=== PATIENT | male | born 1955 | race Caucasian/White ===

== ENCOUNTER 2021-11-26 23:54 | Emergency (ER) | payer MEDICARE ==
[~2021-11-26] VITALS: Ht 177.8 cm; Wt 73.0 kg
[2021-11-27 01:03] LABS: Source, Urine Clean Catch
[2021-11-27 01:06] LABS: Blood, Urine 2+ (Neg); Glucose Qualitative, Urine Neg (Neg); Ketones, Urine Neg (Neg); Leukocyte Esterase, Urine Neg (Neg); Nitrite, Urine Neg (Neg); Protein, Urine Neg (Neg); Specific Gravity, Urine 1.015 (1.003-1.022); Urobilinogen, Urine 3+ (Normal)
[2021-11-27 01:07] LABS: BASOPHILS ABSOLUTE AUTO 0.05 K/mm3 (0.00-0.23); BASOPHILS PERCENT AUTO 1 % (0-2); EOSINOPHILS ABSOLUTE AUTO 0.04 K/mm3 (0.00-0.68); EOSINOPHILS PERCENT AUTO 0 % (0-6); Hematocrit 37.4 % (37.0-53.0); IMMATURE GRAN ABSOLUTE AUTO 0.03 K/mm3 (0.00-0.10); IMMATURE GRAN PERCENT AUTO 0 % (0-1); LYMPHOCYTES ABSOLUTE AUTO 3.05 K/mm3 (0.84-5.20); LYMPHOCYTES PERCENT AUTO 32 % (21-46); MONOCYTES ABSOLUTE AUTO 1.53 K/mm3 (0.16-1.47); MONOCYTES PERCENT AUTO 16 % (4-13); Mean Corpuscular HGB 32.9 pg (26.0-34.0); Mean Corpuscular HGB Conc 34.8 g/dL (31.5-36.5); Mean Corpuscular Volume 95 fL (80-100); Mean Platelet Volume 9.5 fL (9.1-12.4); NEUTROPHILS ABSOLUTE AUTO 4.97 K/mm3 (1.96-9.15); NEUTROPHILS PERCENT AUTO 52 % (41-73); Platelet Count 238 K/mm3 (150-400); RDW Coefficient Variation 13.4 % (11.7-14.2); RDW Standard Deviation 47.1 fL (35.1-46.3); Red Blood Cell Count 3.95 M/mm3 (4.30-5.90); White Blood Cell Count 9.67 K/mm3 (4.00-11.30)
[2021-11-27 01:15] LABS: Amorphous Light (0-Heavy); Appearance, Urine Clear (Clear); Bacteria Not Seen /hpf; Bilirubin, Urine 1+ (Neg); Color, Urine Amber (P-Yellow); Mucus Light (0-Heavy); Squamous Epithelial Cells Rare /hpf (Few); White Blood Cells, Urine Not Seen /hpf (0-5)
[2021-11-27 01:25] LABS: Albumin, Blood 2.3 g/dL (3.4-5.0); Albumin/Globulin Ratio 0.5 (0.8-1.8); Bilirubin, Total 1.7 mg/dL (0.1-1.0); Bun/Creatinine Ratio 13.4 (12.0-20.0); Calcium, Blood 8.3 mg/dL (8.5-10.1); Creatinine, Blood 0.75 mg/dL (0.60-1.20); Globulin, Blood 4.5 g/dL (2.2-4.0); Total Protein, Blood 6.8 g/dL (6.4-8.2)
== END 2021-11-27 03:41 | disposition left against medical advice (07) ==
LOC: ER 23:54
PROVIDERS: Student in an Organized Health Care Education/Training Program
DX: R10.9 Unspecified abdominal pain (principal); Z53.21 Procedure and treatment not carried out due to patient leaving prior to being seen by health care provider
CPT/HCPCS: 36415; 80053; 81001; 83690; 85025

== ENCOUNTER 2022-02-03 13:05 | Emergency (ER) | payer MEDICARE ==
[~2022-02-03] VITALS: Ht 177.8 cm; Wt 70.8 kg
[2022-02-03 13:50] LABS: BASOPHILS ABSOLUTE AUTO 0.03 K/mm3 (0.00-0.23); BASOPHILS PERCENT AUTO 0 % (0-2); EOSINOPHILS PERCENT AUTO 1 % (0-6); Hematocrit 46.4 % (37.0-53.0); Hemoglobin 15.9 g/dL (13.5-17.5); IMMATURE GRAN ABSOLUTE AUTO 0.02 K/mm3 (0.00-0.10); IMMATURE GRAN PERCENT AUTO 0 % (0-1); LYMPHOCYTES ABSOLUTE AUTO 2.41 K/mm3 (0.84-5.20); LYMPHOCYTES PERCENT AUTO 24 % (21-46); MONOCYTES ABSOLUTE AUTO 1.32 K/mm3 (0.16-1.47); MONOCYTES PERCENT AUTO 13 % (4-13); Mean Corpuscular HGB 31.7 pg (26.0-34.0); Mean Corpuscular HGB Conc 34.3 g/dL (31.5-36.5); Mean Corpuscular Volume 93 fL (80-100); Mean Platelet Volume 9.9 fL (9.1-12.4); NEUTROPHILS ABSOLUTE AUTO 6.14 K/mm3 (1.96-9.15); NEUTROPHILS PERCENT AUTO 61 % (41-73); Platelet Count 254 K/mm3 (150-400); RDW Coefficient Variation 14.1 % (11.7-14.2); Red Blood Cell Count 5.01 M/mm3 (4.30-5.90); White Blood Cell Count 10.02 K/mm3 (4.00-11.30)
[2022-02-03 14:28] LABS: Albumin, Blood 2.7 g/dL (3.4-5.0); Albumin/Globulin Ratio 0.6 (0.8-1.8); Bilirubin, Total 2.1 mg/dL (0.1-1.0); Bun/Creatinine Ratio 34.7 (12.0-20.0); Calcium, Blood 9.3 mg/dL (8.5-10.1); Creatinine, Blood 0.75 mg/dL (0.60-1.20); Globulin, Blood 4.5 g/dL (2.2-4.0); Potassium, Blood 3.6 mmol/L (3.5-5.5); Total Protein, Blood 7.2 g/dL (6.4-8.2)
[2022-02-03 17:46] LABS: International Normalized Ratio 1.18; Prothrombin Time Results 12.3 Sec (9.7-11.5)
[2022-02-03] MEDS ORDERED: HYDROCODONE-AC1 EA18 PO (18:51)
[2022-02-03] MEDS ORDERED: ONDA4ODT MM (19:58)
[2022-02-03] MEDS ORDERED: PERCOCET 10-321 EA12 PO (19:58)
[2022-02-03] MEDS ORDERED: PHENERGAN25 MG PR (19:58)
== END 2022-02-03 20:15 | disposition home or self-care (01) ==
LOC: ER 13:05
PROVIDERS: Physician Assistant
DX: C22.0 Liver cell carcinoma (principal); R74.01 Elevation of levels of liver transaminase levels; I25.2 Old myocardial infarction; Z87.891 Personal history of nicotine dependence
CPT/HCPCS: 36415; 74177; 80053; 83690; 85025; 85610; A9270; J1170; J2405; J7030; Q9967

== ENCOUNTER 2022-07-22 10:54 | Inpatient (IN) | payer MEDICARE, OTHER ==
[~2022-07-22] VITALS: Ht 177.8 cm; Wt 72.9 kg
[~2022-07-22 10:54] MED LIST: HYDROCODONE-AC1 EA18 PO; ONDA4ODT MM; PERCOCET 10-321 EA12 PO; PHENERGAN25 MG PR
[2022-07-22 12:27] LABS: Albumin, Blood 2.4 g/dL (3.4-5.0); Albumin/Globulin Ratio 0.5 (0.8-1.8); Bilirubin, Total 1.2 mg/dL (0.1-1.0); Bun/Creatinine Ratio 12.3 (12.0-20.0); Calcium, Blood 8.5 mg/dL (8.5-10.1); Creatinine, Blood 0.82 mg/dL (0.60-1.20); Globulin, Blood 4.6 g/dL (2.2-4.0); Potassium, Blood 3.6 mmol/L (3.5-5.5)
[2022-07-22 12:29] LABS: BASOPHILS ABSOLUTE AUTO 0.08 K/mm3 (0.00-0.23); BASOPHILS PERCENT AUTO 1 % (0-2); EOSINOPHILS ABSOLUTE AUTO 0.22 K/mm3 (0.00-0.68); EOSINOPHILS PERCENT AUTO 3 % (0-6); Hematocrit 46.6 % (37.0-53.0); Hemoglobin 15.9 g/dL (13.5-17.5); IMMATURE GRAN ABSOLUTE AUTO 0.02 K/mm3 (0.00-0.10); IMMATURE GRAN PERCENT AUTO 0 % (0-1); LYMPHOCYTES ABSOLUTE AUTO 1.79 K/mm3 (0.84-5.20); LYMPHOCYTES PERCENT AUTO 28 % (21-46); MONOCYTES ABSOLUTE AUTO 0.76 K/mm3 (0.16-1.47); MONOCYTES PERCENT AUTO 12 % (4-13); Mean Corpuscular HGB 32.5 pg (26.0-34.0); Mean Corpuscular HGB Conc 34.1 g/dL (31.5-36.5); Mean Corpuscular Volume 95 fL (80-100); Mean Platelet Volume 9.9 fL (9.1-12.4); NEUTROPHILS ABSOLUTE AUTO 3.53 K/mm3 (1.96-9.15); NEUTROPHILS PERCENT AUTO 55 % (41-73); Platelet Count 289 K/mm3 (150-400); RDW Coefficient Variation 14.3 % (11.7-14.2); RDW Standard Deviation 49.6 fL (35.1-46.3); Red Blood Cell Count 4.89 M/mm3 (4.30-5.90)
[2022-07-22] MEDS ORDERED: OXYC10TA19 PO (19:27)
[2022-07-22] MEDS ORDERED: FENT200LOZ MM (19:28)
[2022-07-22] MEDS ORDERED: FENT200LOZ TD (19:30)
--- NOTE | 2022-07-23 05:12 | NUR ---
SHIFT SUMMARY PT IS A&OX4, IND IN THE ROOM, HAS HAD UNCHANGED Q4 NUERO ASSESSMENTS, AND HAS DENIED ANY ANGINA, SOB, DIZZYNESS, NUMBNESS/TINGLING, AND PAIN. THE PT HAS STAGE FOUR LIVER CANCER AND USES A FENTYNAL PATCH TO MANAGE HIS PAIN. WHEN HE WAS SLEEPING HE BEGAN TO DESATURATE TO 88% AND WAS PLACED ON 1L NC WHEN SLEEPING. BP WAS HYPERTENSIVE AT THE START OF THE SHIFT AND HAS BEGAN TO STABLIZE T/O THE SHIFT. HE HAS RIGHT SIDED WEAKNESS BUT STILL IS ABLE TO USE HIS RIGHT SIDE. HIS BED IS IN LOW, CALL LIGHT IS IN REACH, AND I WILL CONTINUE TO MONITOR UNTIL SHIFT REPORT IS GIVEN TO THE ONCOMING SHIFT RN. SEE NOTES FOR ANY UPDATES
--- NOTE | 2022-07-23 17:54 | NUR ---
ASSUMED CARE OF PT AT 0700 THIS AM. NEUROLOGICAL ASSESSMENT REMAINS UNCHANGED T/O THE SHIFT. AT 1416 PT NOTED TO HAVE 18 BEAT RUN OF VTACH ON TELEMETRY, PT IS ASYMPTOMATIC AND DR TAM IS NOTIFIED. NO NEW ORDERS. PT'S DTR CONCERNED ABOUT PT RECEIVING LIPITOR WITH HIS LIVER CA, STATES THAT LIPITOR SHOULDN'T BE GIVEN TO PT'S WITH LIVER PROBLEMS. DR TAM NOTIFIED OF CONCERNS, NO NEW ORDERS AT THIS TIME. SEE DOCUMENTED VS AND ASSESSMENT. PT ABLE TO AMBULATE INDEPENDENTLY IN ROOM, ABLE TO USE CALL LIGHT FOR NEEDS. CALL LIGHT IN REACH, WILL CONTINUE TO MONITOR AND GIVE REPORT TO NOC SHIFT RN.
[2022-07-24 04:03] LABS: BASOPHILS ABSOLUTE AUTO 0.07 K/mm3 (0.00-0.23); BASOPHILS PERCENT AUTO 1 % (0-2); EOSINOPHILS ABSOLUTE AUTO 0.45 K/mm3 (0.00-0.68); EOSINOPHILS PERCENT AUTO 8 % (0-6); Hematocrit 44.4 % (37.0-53.0); Hemoglobin 15.4 g/dL (13.5-17.5); IMMATURE GRAN ABSOLUTE AUTO 0.03 K/mm3 (0.00-0.10); IMMATURE GRAN PERCENT AUTO 1 % (0-1); LYMPHOCYTES ABSOLUTE AUTO 1.98 K/mm3 (0.84-5.20); LYMPHOCYTES PERCENT AUTO 33 % (21-46); MONOCYTES ABSOLUTE AUTO 0.66 K/mm3 (0.16-1.47); MONOCYTES PERCENT AUTO 11 % (4-13); Mean Corpuscular HGB 32.6 pg (26.0-34.0); Mean Corpuscular HGB Conc 34.7 g/dL (31.5-36.5); Mean Corpuscular Volume 94 fL (80-100); Mean Platelet Volume 9.1 fL (9.1-12.4); NEUTROPHILS ABSOLUTE AUTO 2.82 K/mm3 (1.96-9.15); NEUTROPHILS PERCENT AUTO 47 % (41-73); Platelet Count 258 K/mm3 (150-400); RDW Standard Deviation 48.9 fL (35.1-46.3); Red Blood Cell Count 4.72 M/mm3 (4.30-5.90); White Blood Cell Count 6.01 K/mm3 (4.00-11.30)
[2022-07-24 04:52] LABS: Albumin, Blood 2.1 g/dL (3.4-5.0); Albumin/Globulin Ratio 0.5 (0.8-1.8); Bun/Creatinine Ratio 22.1 (12.0-20.0); Creatinine, Blood 0.68 mg/dL (0.60-1.20); Globulin, Blood 4.1 g/dL (2.2-4.0); Total Protein, Blood 6.2 g/dL (6.4-8.2)
--- NOTE | 2022-07-24 05:29 | NUR ---
SHIFT SUMMARY PT IS A&OX4, IND IN THE ROOM, HAS HAD 1L NC ON WHEN SLEEPING TO MAINTAIN SP02>90%, AND HE HAS HAD NO COMPLAINTS. PT WAS HYPERTENSIVE AND DR. PATEL WAS CALLED. SEE PREVIOUS NOTE FOR MORE INFORMATION. AFTER 25MG LOPRESSOR WAS GIVEN PT'S HR BEGAN TO SUSTAIN IN THE 40'S-50'S EVEN WHEN AWAKE. PT WAS NOT HAVING ANY SX CHANGES. HIS BED ALARM IS ON, BED IS IN LOW, AND CALL LIGHT IS IN REACH. WILL CONTINUE TO MONITOR UNTIL SHIFT REPORT IS GIVEN TO THE ONCOMING SHIFT RN. SEE NOTES FOR ANY UPDATES
[2022-07-24] MEDS ORDERED: LISI5 PO (14:48)
[2022-07-24] MEDS ORDERED: PRAV20 PO (14:48)
[2022-07-24] MEDS ORDERED: FENTANYL1 EA10 TOP (14:49)
[2022-07-24] MEDS ORDERED: ASPI81CH PO (14:50)
--- NOTE | 2022-07-24 15:49 | NUR ---
DISCHARGE SUMMARY PATIENT ALERT AND ORIENTED THROUGHOUT SHIFT. R SIDE WEAKNESS BUT ABLE TO AMBULATE INDEPENDENTLY IN ROOM. TOLERATING CARDIAC DIET AND LIQUIDS. VOIDING WELL. BRADYCARIC ON TELE DURING AM, HR TRENDED UP TO 60S DURING AFTERNOON. OTHER VSS, RA. MEDICATED FOR RIGHT ABD PAIN PER EMAR. DISCHARGE ORDERS GIVEN BY DR ADAME. DISCHARGE EDUCATION GIVEN ON NEW RXS, ACTIVITY, AND FOLLOW UP APPTS WITH PCP. IV'S DC'D WNL. PATIENT LEFT UNIT AT 1500 VIA WHEELCHAIR FOR HOME WITH DAUGHTER.
== END 2022-07-24 15:25 | disposition home or self-care (01) | DRG 65 ==
LOC: ER 10:54 → PCU 17:32
PROVIDERS: Emergency Medicine; Family Medicine; ADMIT Internal Medicine
DX: I63.89 Other cerebral infarction (principal); C22.0 Liver cell carcinoma; G81.91 Hemiplegia, unspecified affecting right dominant side; F11.10 Opioid abuse, uncomplicated; I10 Essential (primary) hypertension; N28.89 Other specified disorders of kidney and ureter; B19.20 Unspecified viral hepatitis C without hepatic coma; R29.6 Repeated falls; G89.29 Other chronic pain; I25.10 Atherosclerotic heart disease of native coronary artery without angina pectoris; Z96.651 Presence of right artificial knee joint; Z87.891 Personal history of nicotine dependence; Z79.891 Long term (current) use of opiate analgesic; Z79.899 Other long term (current) drug therapy; I25.2 Old myocardial infarction
CPT/HCPCS: 36415; 70450; 70496; 70498; 70551; 80053; 82947; 85025; 93005; 93010; 93306; 97110; 97112; 97116; 97161; 97166; 97530; 99285-25; A9270; Q9967

== ENCOUNTER → 2022-10-01 | Outpatient (CLI) | payer MEDICARE, OTHER ==
[~2022-10-01] MED LIST changes: +ASPI81CH PO; +FENT200LOZ MM; +FENT200LOZ TD; +FENTANYL1 EA10 TOP; +LISI5 PO; +OXYC10TA19 PO; +PRAV20 PO
[2022-10-01 13:06] LABS: BASOPHILS ABSOLUTE AUTO 0.09 K/mm3 (0.00-0.23); BASOPHILS PERCENT AUTO 1 % (0-2); EOSINOPHILS PERCENT AUTO 7 % (0-6); Hematocrit 43.7 % (37.0-53.0); Hemoglobin 15.7 g/dL (13.5-17.5); IMMATURE GRAN ABSOLUTE AUTO 0.02 K/mm3 (0.00-0.10); IMMATURE GRAN PERCENT AUTO 0 % (0-1); LYMPHOCYTES ABSOLUTE AUTO 2.29 K/mm3 (0.84-5.20); LYMPHOCYTES PERCENT AUTO 27 % (21-46); MONOCYTES ABSOLUTE AUTO 1.01 K/mm3 (0.16-1.47); MONOCYTES PERCENT AUTO 12 % (4-13); Mean Corpuscular HGB 33.5 pg (26.0-34.0); Mean Corpuscular HGB Conc 35.9 g/dL (31.5-36.5); Mean Corpuscular Volume 93 fL (80-100); Mean Platelet Volume 9.1 fL (9.1-12.4); NEUTROPHILS ABSOLUTE AUTO 4.34 K/mm3 (1.96-9.15); NEUTROPHILS PERCENT AUTO 52 % (41-73); Platelet Count 244 K/mm3 (150-400); RDW Coefficient Variation 14.6 % (11.7-14.2); RDW Standard Deviation 48.8 fL (35.1-46.3); Red Blood Cell Count 4.69 M/mm3 (4.30-5.90); White Blood Cell Count 8.35 K/mm3 (4.00-11.30)
[2022-10-01 13:56] LABS: Magnesium, Blood 1.9 mg/dL (1.6-2.4)
[2022-10-01 14:03] LABS: Albumin, Blood 2.6 g/dL (3.4-5.0); Albumin/Globulin Ratio 0.6 (0.8-1.8); Bilirubin, Total 1.6 mg/dL (0.1-1.0); Bun/Creatinine Ratio 18.8 (12.0-20.0); Calcium, Blood 8.6 mg/dL (8.5-10.1); Creatinine, Blood 0.64 mg/dL (0.60-1.20); Globulin, Blood 4.3 g/dL (2.2-4.0); Potassium, Blood 3.8 mmol/L (3.5-5.5); Total Protein, Blood 6.9 g/dL (6.4-8.2)
== END | disposition home or self-care (01) ==
LOC: LAB SHORT 12:55 → LAB 12:55
PROVIDERS: Emergency Medicine
DX: R42 Dizziness and giddiness (principal)
CPT/HCPCS: 80053; 83690; 83735; 85025

== ENCOUNTER 2022-11-01 23:03 | Inpatient (IN) | payer OTHER, MEDICARE ==
[~2022-11-01] VITALS: Ht 177.8 cm; Wt 64.4 kg
[2022-11-01 23:44] LABS: BASOPHILS ABSOLUTE AUTO 0.09 K/mm3 (0.00-0.23); BASOPHILS PERCENT AUTO 1 % (0-2); EOSINOPHILS ABSOLUTE AUTO 0.68 K/mm3 (0.00-0.68); EOSINOPHILS PERCENT AUTO 8 % (0-6); Hematocrit 39.6 % (37.0-53.0); Hemoglobin 13.8 g/dL (13.5-17.5); IMMATURE GRAN ABSOLUTE AUTO 0.03 K/mm3 (0.00-0.10); IMMATURE GRAN PERCENT AUTO 0 % (0-1); LYMPHOCYTES PERCENT AUTO 31 % (21-46); MONOCYTES ABSOLUTE AUTO 1.03 K/mm3 (0.16-1.47); MONOCYTES PERCENT AUTO 13 % (4-13); Mean Corpuscular HGB 33.2 pg (26.0-34.0); Mean Corpuscular HGB Conc 34.8 g/dL (31.5-36.5); Mean Corpuscular Volume 95 fL (80-100); Mean Platelet Volume 9.8 fL (9.1-12.4); NEUTROPHILS ABSOLUTE AUTO 3.84 K/mm3 (1.96-9.15); NEUTROPHILS PERCENT AUTO 46 % (41-73); Platelet Count 214 K/mm3 (150-400); RDW Coefficient Variation 14.2 % (11.7-14.2); RDW Standard Deviation 49.5 fL (35.1-46.3); Red Blood Cell Count 4.16 M/mm3 (4.30-5.90); White Blood Cell Count 8.27 K/mm3 (4.00-11.30)
[2022-11-02] LABS: U Amphetamine Screen Not Detected; U Barbituate Screen Not Detected; U Benzodiazapine Screen Not Detected; U Buprenorphine Screen Not Detected; U Cannabinoids Screen Not Detected; U Cocaine Screen Not Detected; U Methadone Screen Not Detected; U Methamphetamine Screen Not Detected; U Opiates Screen Not Detected; U Oxycodone Screen Not Detected; U Phencyclidine Screen Not Detected; U Propoxyphene Screen Not Detected
[2022-11-02 00:04] LABS: Albumin, Blood 2.3 g/dL (3.4-5.0); Albumin/Globulin Ratio 0.6 (0.8-1.8); Bilirubin, Total 1.6 mg/dL (0.1-1.0); Bun/Creatinine Ratio 16.3 (12.0-20.0); Calcium, Blood 8.3 mg/dL (8.5-10.1); Creatinine, Blood 0.67 mg/dL (0.60-1.20); Globulin, Blood 3.8 g/dL (2.2-4.0); Potassium, Blood 3.8 mmol/L (3.5-5.5); Thyroid Stimulating Hormone 2.01 uIU/mL (0.360-4.800); Total Protein, Blood 6.1 g/dL (6.4-8.2)
[2022-11-02 03:38] VITALS: BP 157/95
--- NOTE | 2022-11-02 04:05 | NUR ---
ADMIT: PT ARRIVED AT 0330 TO MED FLOOR 338. PT ABLE TO TRANSFER WITH MIN ASSIST FROM [facility] TO BED. PT BROUGHT CANE WHICH HE USES AT HOME. IV SITE BLOODY AND WOULD NOT FLUSH. WILL ATTEMPT NEW IV THIS SHIFT. UA STRAIGHT CATH ORDERED WHICH PT IS REFUSING AT THIS TIME. PT CAME IN WITH 2 FENTANYL PATCH ON LEFT UPPER ARM. ONE 25MCG AND THE OTHER 12.5MCG. PT HOME MED LIST SHOWS 25 MCG PATCH Q3 DAYS. PT ALERT AND ABLE TO ANSWER ALL ORIENTATION QUESTIONS. BRUISING/SWELLING TO L.KNEE. PT STATES FROM PREVIOUS FALL. CALL LIGHT IN REACH. BED IN LOWEST POSITION. BED ALARM ON. WILL CONTINUE TO MONITOR.
[2022-11-02 05:09] LABS: BASOPHILS ABSOLUTE AUTO 0.07 K/mm3 (0.00-0.23); BASOPHILS PERCENT AUTO 1 % (0-2); EOSINOPHILS ABSOLUTE AUTO 0.87 K/mm3 (0.00-0.68); EOSINOPHILS PERCENT AUTO 11 % (0-6); Hematocrit 41.3 % (37.0-53.0); Hemoglobin 14.4 g/dL (13.5-17.5); IMMATURE GRAN ABSOLUTE AUTO 0.02 K/mm3 (0.00-0.10); IMMATURE GRAN PERCENT AUTO 0 % (0-1); LYMPHOCYTES ABSOLUTE AUTO 2.45 K/mm3 (0.84-5.20); LYMPHOCYTES PERCENT AUTO 32 % (21-46); MONOCYTES ABSOLUTE AUTO 1.02 K/mm3 (0.16-1.47); MONOCYTES PERCENT AUTO 13 % (4-13); Mean Corpuscular HGB 33.1 pg (26.0-34.0); Mean Corpuscular HGB Conc 34.9 g/dL (31.5-36.5); Mean Corpuscular Volume 95 fL (80-100); Mean Platelet Volume 9.2 fL (9.1-12.4); NEUTROPHILS ABSOLUTE AUTO 3.19 K/mm3 (1.96-9.15); NEUTROPHILS PERCENT AUTO 42 % (41-73); Platelet Count 198 K/mm3 (150-400); RDW Coefficient Variation 14.1 % (11.7-14.2); RDW Standard Deviation 49.3 fL (35.1-46.3); Red Blood Cell Count 4.35 M/mm3 (4.30-5.90); White Blood Cell Count 7.62 K/mm3 (4.00-11.30)
[2022-11-02 05:29] LABS: Albumin, Blood 2.4 g/dL (3.4-5.0); Albumin/Globulin Ratio 0.6 (0.8-1.8); Bun/Creatinine Ratio 16.2 (12.0-20.0); Calcium, Blood 8.5 mg/dL (8.5-10.1); Creatinine, Blood 0.68 mg/dL (0.60-1.20); Globulin, Blood 3.8 g/dL (2.2-4.0); Potassium, Blood 3.7 mmol/L (3.5-5.5); Total Protein, Blood 6.2 g/dL (6.4-8.2)
[2022-11-02 05:40] LABS: Source, Urine Straight Cath
[2022-11-02 05:47] LABS: Bilirubin, Urine Neg (Neg); Blood, Urine 5+ (Neg); Glucose Qualitative, Urine Neg (Neg); Ketones, Urine Neg (Neg); Leukocyte Esterase, Urine Neg (Neg); Nitrite, Urine Neg (Neg); Protein, Urine Neg (Neg); Urobilinogen, Urine 1+ (Normal)
[2022-11-02 05:58] LABS: Appearance, Urine Hazy (Clear); Color, Urine Yellow (P-Yellow)
[2022-11-02 06:00] LABS: Bacteria Not Seen /hpf; Red Blood Cells, Urine 50-100 /hpf (0-2); Squamous Epithelial Cells Not Seen /hpf (Few); White Blood Cells, Urine Not Seen /hpf (0-5)
[2022-11-02 07:37] VITALS: BP 141/90
--- NOTE | 2022-11-02 11:59 | NUR ---
FENTANYL PATCH ON LEFT UPPER ARM 25MCG FROM HOME APPLICATION REMOVED BY PREPARATOR AT DIRECTION OF DR HERNANDEZ. PATIENT AGREABLE.
[2022-11-02 13:24] VITALS: BP 119/75
--- NOTE | 2022-11-02 17:21 | NUR ---
SHIFT SUMMARY PATIENT AOX2-3 TODAY, UNABLE TO STATE EXACT DATE BUT MONTH CORRECT. UNABLE TO STATE REASON FOR BEING IN HOSPITAL. 2 DOSES LACTULOSE GIVEN TODAY. PATIENT HAS HAD 4 BM THIS AFTERNOON, LAST 3 HAVE BEEN WATERY. PATIENT DENIES ANY PAIN, DIZZINESS OR OTHER ISSUES. WILL CONTINUE TO MONITOR.
[2022-11-02 20:07] VITALS: BP 116/72
[2022-11-03 04:15] VITALS: BP 125/82
--- NOTE | 2022-11-03 04:38 | NUR ---
SHIFT SUMMARY: PT A&O X2 THIS SHIFT. PT ABLE TO STATE NAME AND WHERE HE IS BUT IS UNABLE TO TELL ME WHY HE IS HERE AND WHAT DAY OF WEEK IT IS. PT PLEASANT AND COOPERATIVE WITH CARE. BED ALARM ON FOR IMPULSIVITY AND QUICKLY GETTING OUT OF BED W/O ASSISTANCE. PT SB ASSIST TO BATHROOM BUT IS QUICK ON FEET. LACTULOSE GIVEN PER EMAR. PT HAD ONE MEDIUM SIZED BM THIS SHIFT. AMMONIA DOWN TO 102 FROM 119. PT HAS HEPATOCELLULAR CARCINOMA. OUTPT CARE PROVIDED BY DR. MCFADDEN. CALL LIGHT IN REACH. BED IN LOWEST POSITION. BED ALARM ON. WILL CONTINUE TO MONITOR.
[2022-11-03 07:37] VITALS: BP 139/88
[2022-11-03 15:07] VITALS: BP 130/83
--- NOTE | 2022-11-03 18:27 | NUR ---
SHIFT SUMMARY PATIENT MORE ORIENTED TODAY, ABLE TO STATE MONTH, PRESIDENT, LOCATION, PERSON AND WHY HE CAME IN. BED ALARM CONTINUES TO BE ON DUE TO LIMITATION AWARENESS AND RESUMPTION OF FENTANYL PATCHES TODAY IN LIGHT OF AMS YESTERDAY. PATIENT COOPERATIVE WITH CARE. BED IN LOW POSITION AND CALL LIGHT IN REACH.
[2022-11-03 19:41] VITALS: BP 144/84
[2022-11-04 02:33] VITALS: BP 144/97
--- NOTE | 2022-11-04 04:25 | NUR ---
SHIFT SUMMARY PT ALERT AND ORIENTED X 4. PT HAD AN INSTANCE OF CHEST/RIB PAIN LAST EVENING. PT WEARING FENTANYL PATCH, HOWEVER PT REQUIRED 20 MG OF ROXYCODONE SUPPLEMENTAL PAIN MEDICATION AT THAT TIME. PT HAS NOT HAD ANY COMPLAINTS OF PAIN SINCE THAT TIME.
[2022-11-04 05:27] LABS: BASOPHILS ABSOLUTE AUTO 0.09 K/mm3 (0.00-0.23); BASOPHILS PERCENT AUTO 1 % (0-2); EOSINOPHILS ABSOLUTE AUTO 0.92 K/mm3 (0.00-0.68); EOSINOPHILS PERCENT AUTO 11 % (0-6); Hematocrit 40.6 % (37.0-53.0); Hemoglobin 14.4 g/dL (13.5-17.5); IMMATURE GRAN ABSOLUTE AUTO 0.01 K/mm3 (0.00-0.10); IMMATURE GRAN PERCENT AUTO 0 % (0-1); LYMPHOCYTES ABSOLUTE AUTO 2.53 K/mm3 (0.84-5.20); LYMPHOCYTES PERCENT AUTO 30 % (21-46); MONOCYTES ABSOLUTE AUTO 0.99 K/mm3 (0.16-1.47); MONOCYTES PERCENT AUTO 12 % (4-13); Mean Corpuscular HGB 33.4 pg (26.0-34.0); Mean Corpuscular HGB Conc 35.5 g/dL (31.5-36.5); Mean Corpuscular Volume 94 fL (80-100); Mean Platelet Volume 9.3 fL (9.1-12.4); NEUTROPHILS ABSOLUTE AUTO 3.81 K/mm3 (1.96-9.15); NEUTROPHILS PERCENT AUTO 46 % (41-73); Platelet Count 210 K/mm3 (150-400); RDW Coefficient Variation 14.3 % (11.7-14.2); RDW Standard Deviation 49.8 fL (35.1-46.3); Red Blood Cell Count 4.31 M/mm3 (4.30-5.90); White Blood Cell Count 8.35 K/mm3 (4.00-11.30)
[2022-11-04 05:50] LABS: Albumin, Blood 2.2 g/dL (3.4-5.0); Albumin/Globulin Ratio 0.6 (0.8-1.8); Bilirubin, Direct 0.7 mg/dL (0.0-0.3); Bilirubin, Indirect 1.2 mg/dL (0.1-0.7); Bilirubin, Total 1.9 mg/dL (0.1-1.0); Bun/Creatinine Ratio 14.8 (12.0-20.0); Calcium, Blood 7.9 mg/dL (8.5-10.1); Creatinine, Blood 0.74 mg/dL (0.60-1.20); Globulin, Blood 3.7 g/dL (2.2-4.0); Potassium, Blood 3.9 mmol/L (3.5-5.5); Total Protein, Blood 5.9 g/dL (6.4-8.2)
[2022-11-04 07:56] VITALS: BP 129/82
[2022-11-04] MEDS ORDERED: Prinivil10 MG PO (13:31)
[2022-11-04] MEDS ORDERED: Enulose10 GM/15 M PO (13:32)
--- NOTE | 2022-11-04 15:34 | NUR ---
DISCHARGE SUMMARY PATIENT ORIENTED X4 TODAY, DAUGHTER PRESENT THROUGHOUT MORNING. PATIENT CONTINUES WILL SEVERAL BOWEL MOVEMENTS TODAY. DISCHARGE AND EDUCATION PACKET PROVIDED TO PATIENT AND DAUGHTER. ALL QUESTIONS ANSWERED. SIGNATURES OBTAINED. PATIENT LEFT FLOOR AT 1527 IN WHEELCHAIR WITH DALILA TAVERAS. DAUGHTER PRESENT AND PROVIDING TRANSPORTATION HOME.
== END 2022-11-04 15:23 | disposition home or self-care (01) | DRG 442 ==
LOC: ER 23:03 → MEDS 23:04
PROVIDERS: Emergency Medicine; Family Medicine; Internal Medicine; ADMIT Internal Medicine
DX: K76.82 Hepatic encephalopathy (principal); C22.0 Liver cell carcinoma; R64 Cachexia; I69.351 Hemiplegia and hemiparesis following cerebral infarction affecting right dominant side; S80.02XA Contusion of left knee, initial encounter; Z51.5 Encounter for palliative care; S01.311A Laceration without foreign body of right ear, initial encounter; I10 Essential (primary) hypertension; R94.5 Abnormal results of liver function studies; W01.0XXA Fall on same level from slipping, tripping and stumbling without subsequent striking against object, initial encounter; Z87.891 Personal history of nicotine dependence; Z79.82 Long term (current) use of aspirin; Z79.811 Long term (current) use of aromatase inhibitors; Z79.891 Long term (current) use of opiate analgesic; Z79.899 Other long term (current) drug therapy; Z71.6 Tobacco abuse counseling; Z86.19 Personal history of other infectious and parasitic diseases; Z85.528 Personal history of other malignant neoplasm of kidney; Z68.21 Body mass index [BMI] 21.0-21.9, adult; I25.2 Old myocardial infarction; Z98.890 Other specified postprocedural states
CPT/HCPCS: 36415; 70450; 73560-LT; 80053; 81001; 82140; 82248; 84443; 85025; 93005; 93010; 97110; 97116; 97161; 97166; 97535; 99285-25; A9270; G0378; J1650

== ENCOUNTER 2023-01-23 12:43 | Emergency (ER) | payer MEDICARE, OTHER ==
[~2023-01-23] VITALS: Ht 177.8 cm; Wt 60.3 kg
[~2023-01-23 12:43] MED LIST changes: +Enulose10 GM/15 M PO; +Prinivil10 MG PO
[2023-01-23 13:18] LABS: BASOPHILS ABSOLUTE AUTO 0.05 K/mm3 (0.00-0.23); BASOPHILS PERCENT AUTO 1 % (0-2); EOSINOPHILS ABSOLUTE AUTO 0.14 K/mm3 (0.00-0.68); EOSINOPHILS PERCENT AUTO 1 % (0-6); Hematocrit 38.8 % (37.0-53.0); Hemoglobin 13.3 g/dL (13.5-17.5); IMMATURE GRAN ABSOLUTE AUTO 0.04 K/mm3 (0.00-0.10); IMMATURE GRAN PERCENT AUTO 0 % (0-1); LYMPHOCYTES ABSOLUTE AUTO 1.56 K/mm3 (0.84-5.20); LYMPHOCYTES PERCENT AUTO 16 % (21-46); MONOCYTES ABSOLUTE AUTO 1.55 K/mm3 (0.16-1.47); MONOCYTES PERCENT AUTO 16 % (4-13); Mean Corpuscular HGB 33.3 pg (26.0-34.0); Mean Corpuscular HGB Conc 34.3 g/dL (31.5-36.5); Mean Corpuscular Volume 97 fL (80-100); Mean Platelet Volume 8.7 fL (9.1-12.4); NEUTROPHILS ABSOLUTE AUTO 6.46 K/mm3 (1.96-9.15); NEUTROPHILS PERCENT AUTO 66 % (41-73); Platelet Count 323 K/mm3 (150-400); RDW Coefficient Variation 13.8 % (11.7-14.2); RDW Standard Deviation 48.9 fL (35.1-46.3); Red Blood Cell Count 3.99 M/mm3 (4.30-5.90)
[2023-01-23 13:37] LABS: Albumin, Blood 1.7 g/dL (3.4-5.0); Albumin/Globulin Ratio 0.4 (0.8-1.8); Bilirubin, Total 1.7 mg/dL (0.1-1.0); Bun/Creatinine Ratio 17.7 (12.0-20.0); Calcium, Blood 7.7 mg/dL (8.5-10.1); Creatinine, Blood 0.68 mg/dL (0.60-1.20); Globulin, Blood 3.9 g/dL (2.2-4.0); Potassium, Blood 4.1 mmol/L (3.5-5.5); Total Protein, Blood 5.6 g/dL (6.4-8.2)
[2023-01-23 14:45] VITALS: BP 101/89
[2023-01-23 15:39] LABS: Source, Urine Clean Catch
[2023-01-23 15:41] LABS: Blood, Urine Neg (Neg); Color, Urine Amber (P-Yellow); Glucose Qualitative, Urine Neg (Neg); Ketones, Urine Neg (Neg); Leukocyte Esterase, Urine 1+ (Neg); Nitrite, Urine Neg (Neg); Protein, Urine 2+ (Neg); Urobilinogen, Urine 4+ (Normal)
[2023-01-23 15:47] LABS: Bilirubin, Urine 2+ (Neg)
[2023-01-23 15:49] LABS: Appearance, Urine Hazy (Clear); Bacteria Few /hpf; Mucus Mod (0-Heavy); Red Blood Cells, Urine 0-2 /hpf (0-2); Squamous Epithelial Cells Not Seen /hpf (Few)
[2023-01-23] MEDS ORDERED: OXAYDO5 M7 PO (16:07)
== END 2023-01-23 16:41 | disposition home or self-care (01) ==
LOC: ER 12:43
PROVIDERS: Student in an Organized Health Care Education/Training Program
DX: C22.0 Liver cell carcinoma (principal); R10.9 Unspecified abdominal pain; Z79.899 Other long term (current) drug therapy; Z79.891 Long term (current) use of opiate analgesic; Z79.82 Long term (current) use of aspirin; I10 Essential (primary) hypertension; Z87.891 Personal history of nicotine dependence
CPT/HCPCS: 74177; 80053; 81001; 82140; 85025; 87086; 93005; 93010; 96361; 96374-59; 96375; 99285-25; J1170; J1885; J3010; J7030; Q9967

== ENCOUNTER 2023-02-07 00:24 | Inpatient (IN) | payer MEDICARE, OTHER ==
[~2023-02-07] VITALS: Ht 177.8 cm; Wt 64.7 kg
[~2023-02-07 00:24] MED LIST changes: +OXAYDO5 M7 PO
[2023-02-07 01:23] LABS: Hematocrit 41.3 % (37.0-53.0); Hemoglobin 14.6 g/dL (13.5-17.5); Mean Corpuscular HGB Conc 35.4 g/dL (31.5-36.5); Mean Corpuscular Volume 93 fL (80-100); Mean Platelet Volume 9.4 fL (9.1-12.4); NRBC ABSOLUTE 0.02 K/mm3 (0.00-0.02); NRBC Auto 0.3 /100 WBC (0.0-0.2); Platelet Count 149 K/mm3 (150-400); RDW Coefficient Variation 14.4 % (11.7-14.2); Red Blood Cell Count 4.42 M/mm3 (4.30-5.90); White Blood Cell Count 7.16 K/mm3 (4.00-11.30)
[2023-02-07 01:41] LABS: International Normalized Ratio 1.44; Prothrombin Time Results 14.8 Sec (9.7-11.5)
[2023-02-07 01:42] LABS: Albumin, Blood 1.9 g/dL (3.4-5.0); Albumin/Globulin Ratio 0.5 (0.8-1.8); Bilirubin, Total 1.9 mg/dL (0.1-1.0); Bun/Creatinine Ratio 22.2 (12.0-20.0); Calcium, Blood 8.2 mg/dL (8.5-10.1); Creatinine, Blood 0.68 mg/dL (0.60-1.20); Globulin, Blood 4.1 g/dL (2.2-4.0); Potassium, Blood 3.7 mmol/L (3.5-5.5)
[2023-02-07 01:55] LABS: BAND PERCENT MAN 20 % (0-8); BASOPHILS ABSOLUTE MAN 0.14 K/mm3 (0.00-0.23); BASOPHILS PERCENT MAN 2 % (0-2); EOSINOPHILS ABSOLUTE MAN 0.07 K/mm3 (0.00-0.68); EOSINOPHILS PERCENT MAN 1 % (0-6); LYMPHOCYTES % ATYPICAL MANUAL 1 % (0-0); LYMPHOCYTES ABSOLUTE MAN 0.42 K/mm3 (0.84-5.20); LYMPHOCYTES PERCENT MAN 5 % (21-46); MONOCYTES ABSOLUTE MAN 0.14 K/mm3 (0.16-1.47); MONOCYTES PERCENT MAN 2 % (4-13); NEUTROPHILS ABSOLUTE MAN 6.37 K/mm3 (1.96-9.15); SEG NEUTROPHILS PERCENT MAN 69 % (41-73); TOTAL CELLS COUNTED 100
[2023-02-07 02:59] LABS: Influenza A, PCR NEGATIVE (NEGATIVE); Influenza B, PCR NEGATIVE (NEGATIVE); Resp Syncytial Virus, PCR NEGATIVE (NEGATIVE); SARS-Cov-2 (COVID-19) PCR, MMC NEGATIVE (NEGATIVE)
[2023-02-07 06:38] LABS: Source, Urine Clean Catch
[2023-02-07 06:49] LABS: Appearance, Urine Clear (Clear); Blood, Urine 1+ (Neg); Color, Urine Amber (P-Yellow); Glucose Qualitative, Urine Neg (Neg); Ketones, Urine Neg (Neg); Leukocyte Esterase, Urine 1+ (Neg); Nitrite, Urine Neg (Neg); Protein, Urine 2+ (Neg); Specific Gravity, Urine 1.015 (1.003-1.022); Urobilinogen, Urine 3+ (Normal)
[2023-02-07 06:57] LABS: Bilirubin, Urine 1+ (Neg)
[2023-02-07 06:59] LABS: Bacteria Rare /hpf; Mucus Light (0-Heavy); Squamous Epithelial Cells Few /hpf (Few)
[2023-02-07 07:47] VITALS: BP 102/60
[2023-02-07] MEDS ORDERED: FENTANYL1 EAC7 TOP (10:03)
[2023-02-07 17:09] VITALS: BP 152/66
--- NOTE | 2023-02-07 18:48 | NUR ---
SHIFT SUMMARY PT AXO TO SELF AND DAUGHTER, IRRITABLE, ANGRY AND ALMOST COMBATIVE WHEN THIS NURSE ATTEMPTS TO ASSESS, MEDICATE, REPOSITION, ETC. VSS THOUGH PT TEMP IS TRENDING UP. 99.4 AT THIS TIME. PT MEDICATED PER EMAR AND ALSO HAS A FENTANYL PATCH IN PLACE FROM HOME. PT'S DAUGHTER AT BEDSIDE THROUGHOUT THE DAY. BED IN LOW POSITION, CALL LIGHT WITHIN REACH, BED ALARM ON. PT AND DAUGHTER DENY IGNITION SOURCES AND EDUCATED ON FIRE PREVENTION. PT REFUSED O2 TUBING.
[2023-02-07 23:59] VITALS: BP 129/96
[2023-02-08] VITALS (49 sets, daily range): BP systolic 70–159; BP diastolic 47–140
[2023-02-08 01:46] LABS: Source, Urine Foley catheter
--- NOTE | 2023-02-08 02:00 | NUR ---
PT TRANSFERRED FROM MEDICAL FLOOR TO ICU 3 PER HAULAGE ENGINE OPERATOR. PT ARRIVES TO ROOM AT 0110 THIS MORNING. VERY WARM TO THE TOUCH. 16 PORTUGUESE GELLER WITH TEMP PROBE PLACED FOR CRITICAL CARE NEEDS, AND TEMPERATURE MONITORING. FAN PLACED AT BEDSIDE TO HELP PT WITH FEBRILE EPISODE. COOLING BLANKETS APPLIED.
[2023-02-08 02:02] LABS: Blood, Urine 4+ (Neg); Glucose Qualitative, Urine Neg (Neg); Ketones, Urine 1+ (Neg); Leukocyte Esterase, Urine 1+ (Neg); Nitrite, Urine Neg (Neg); Protein, Urine 2+ (Neg); Specific Gravity, Urine 1.025 (1.003-1.022); Urobilinogen, Urine 2+ (Normal)
--- NOTE | 2023-02-08 02:04 | NUR ---
PER NURSING REPORT AT CHANGE OF SHIFT PT HAS BEEN REFUSING MEDICATIONS INCLUDING LACTULOSE AND THE DAUGHTER HAS BEEN THE ONLY ONE ABLE TO CONVINCE HIM TO EVEN TAKE PAIN MEDICATION. PT WILL NOT ALLOW VACUUM TECHNICIAN TO LISTEN TO HIM WITH A STETHOSCOPE OR ASSESS HIM OR TOUCH HIM AT ALL. HE SCREAMS AND SHAKES AND GETS COMBATIVE IF NEAR HIM. PER NURSING REPORT PROVIDERS AWARE OF PT REFUSING ALL CARE. UNABLE TO OBTAIN VS DUE TO BEING COMBATIVE AND REFUSING. PT SCREAMING HE HAS PAIN, PRN IV FENTANYL WAS GIVEN THROUGH EXTREME EFFORT TO TRY TO GET PATIENT TO STRAIGHTEN HIS ARM OUT SO THAT THE MEDICATION COULD BE ADMNINISTERED DUE TO HIS IV BEING IN HIS AC. PT WILL NOT KEEP GLASSWORKER ON HE HAS EVEN RIPPED THE TELE WIRES APART. PT KEEPS JUMPING OOB AND WILL NOT ALLOW ANYONE TO HELP, HE HAS PULLED HIS IV. HEEL SANDER RUBBER HAS BEEN UNABLE TO LEAVE HIS BEDSIDE. CALLED DR. HERNANDEZ TO REQUEST RESTRAINTS AND SOMETHING FOR AGITATION THAT WILL HOPEFULLY CALM HIM, KEEP HIM SAFE AND ALLOW HIM TO BE WILLING TO ACCEPT CARE. PRN ZYPREXA ORDERED. WHEN GOING TO GIVE PRN ZYPREXA HEEL SANDER RUBBER CALLED OUT THAT HIS FACE WAS TURNING VERY PALE, 4 STAFF MEMBERS WERE NEEDED TO HOLD PATIENT TO OBTAIN VS. O2 WAS 80%, RESPIRATORY WAS IN THE ROOM ADJACENT AND CALLED IN IMMEDIATELY. PT PLACED ON A NONREBREATHER, TEMP 103.5, HR IN 150'S, RAPID RESPONSE CALLED AND ZYPREXA GIVEN TO TRY TO HELP PT RELAX HE WAS STILL FIGHTING TRYING TO GET OOB AND TAKE OFF OXYGEN. REPORT GIVEN TO ICU AND PT TRANSFERRED TO ICU WITHIN MINUTES.
[2023-02-08 02:13] LABS: Bilirubin, Urine 1+ (Neg); Color, Urine Yellow (P-Yellow)
[2023-02-08 02:15] LABS: Red Blood Cells, Urine 0-2 /hpf (0-2); Squamous Epithelial Cells Not Seen /hpf (Few); White Blood Cells, Urine 0-2 /hpf (0-5)
[2023-02-08 02:16] LABS: Appearance, Urine Clear (Clear); Bacteria Few /hpf; Yeast/Fungi Urine Few /hpf
[2023-02-08 03:10] LABS: Hematocrit 39.2 % (37.0-53.0); Hemoglobin 13.4 g/dL (13.5-17.5); Mean Corpuscular HGB Conc 34.2 g/dL (31.5-36.5); Mean Corpuscular Volume 97 fL (80-100); Mean Platelet Volume 9.5 fL (9.1-12.4); NRBC ABSOLUTE 0.05 K/mm3 (0.00-0.02); NRBC Auto 0.8 /100 WBC (0.0-0.2); Platelet Count 85 K/mm3 (150-400); RDW Coefficient Variation 14.8 % (11.7-14.2); RDW Standard Deviation 52.9 fL (35.1-46.3); Red Blood Cell Count 4.06 M/mm3 (4.30-5.90); White Blood Cell Count 6.65 K/mm3 (4.00-11.30)
[2023-02-08 03:36] LABS: Albumin, Blood 1.6 g/dL (3.4-5.0); Albumin/Globulin Ratio 0.5 (0.8-1.8); Bilirubin, Total 1.8 mg/dL (0.1-1.0); Bun/Creatinine Ratio 23.5 (12.0-20.0); Calcium, Blood 7.9 mg/dL (8.5-10.1); Creatinine, Blood 1.02 mg/dL (0.60-1.20); Globulin, Blood 3.4 g/dL (2.2-4.0); Potassium, Blood 4.2 mmol/L (3.5-5.5)
[2023-02-08 03:40] LABS: BAND PERCENT MAN 22 % (0-8); BASOPHILS PERCENT MAN 0 % (0-2); EOSINOPHILS PERCENT MAN 0 % (0-6); LYMPHOCYTES ABSOLUTE MAN 0.39 K/mm3 (0.84-5.20); LYMPHOCYTES PERCENT MAN 6 % (21-46); MONOCYTES ABSOLUTE MAN 0.06 K/mm3 (0.16-1.47); MONOCYTES PERCENT MAN 1 % (4-13); MYELOCYTE ABSOLUTE MAN 0.06 K/mm3 (0.00-0.00); MYELOCYTE PERCENT MAN 1 % (0-0); NEUTROPHILS ABSOLUTE MAN 6.11 K/mm3 (1.96-9.15); SEG NEUTROPHILS PERCENT MAN 70 % (41-73); TOTAL CELLS COUNTED 100
--- NOTE | 2023-02-08 04:23 | NUR ---
PT HAS RECEIVED TYLENOL SUPPOSITORY, ANTIBIOTIC THERAPY, AND COOLING BLANKETS. CURRENT TEMP 101.1 PT NADAR 105.9. PT HAS BECOME MORE RESPONSIVE, AND VERBALLY CHALLENGING TO CARE. HAVE PLACED POWERGLIDE TO RIGHT UPPER ARM. DID REQUIRE ASSISTANCE OF SECONDARY RN TO KEEP PT FROM MOVING ABOUT MAKING IT MORE DIFFICULT IN PLACEMENT. WILL CONTINUE TO MONITOR PT.
--- NOTE | 2023-02-08 07:55 | NUR ---
AM NOTE.... ASSUMED CARE OF PT AT 0700, PT IS A&O TO SELF ONLY, HE IS VERY AGITATED YELLING AND CUSSING AT STAFF AND REFUSING CARE. HE IS IN SR W/PACs AND PVCs IN THE 70'S-80'S. BP IS SOFT BUT STABLE WITH MAPS>65. NO EDEMA IS NOTED ON THIS ASSESSMENT. HE IS ON 5L OXYMIZER WITH O2 SATS>90% L/S COARSE ON THE UPPER LEFT LOBE DIM T/O THE OTHER LOBES. BT ARE VERY HYPOACTIVE, ABD IS VERY TENDER TO LIGHT TOUCH. TEMP GELLER IS PATENT AND DRAINING ABMER URINE TO GRAVITY. CURRENT TEMP VIA THE TEMP GELLER IS 98.6. WILL CONTINUE TO MONITOR.
--- NOTE | 2023-02-08 11:01 | NUR ---
PT UDPATE.... THIS RN SPOKE WITH THE PT'S DAUGHTER RADHA ABOUT WHAT THE PT'S WISHES WERE ABOUT CODE STATUS AND LIFE SUPPORT. THE DAUGHTER STATED "WELL WE DON'T WANT HIM TO SUFFER, WE KNOW HE HAS STAGE 4 CANCER BUT WE WANT YOU GUYS TO AT LEAST TRY CPR FIRST AND IF THAT DOESN'T WORK LET HIM BE COMFORTABLE." THE PT'S DAUGHTER WAS VERY EMOTIONAL DURING THIS CONVERSATION, THIS RN ENCOURAGED THE DAUGHTER TO SPEAK WITH THE REST OF THE FAMILY ABOUT WHAT THE PT'S WISHES WOULD BE AND THAT THIS COULD BE ADDRESSED LATER. WILL CONTINUE TO MONITOR
--- NOTE | 2023-02-08 13:38 | NUR ---
PT UPDATE.... THIS RN WAS IN THE ROOM TO REPOSTION THE PT, SOON THE PT WAS TOUCHED HE STARTED YELLING "STOP I'M HURTING I'M DONE HURTING I JUST WANT TO JUST LET ME !" THE PT'S DAUGHTER ASKED TO MAKE THE PT COMFORT CARE AT THIS TIME. DR. BARRERA WAS NOTIFIED, ORDERS WERE PLACED FOR DNR AND COMFORT CARE. WILL CONTIUE TO MONITOR.
--- NOTE | 2023-02-08 17:30 | NUR ---
PT TRANSFER.... PT TRANSFER TO PCU 5, REPORT GIVEN TO ROBIN SANCHEZ. ALL OF PT'S BELONGINGS WERE PACKED AND SENT WITH THE PT AND FAMILY.
--- NOTE | 2023-02-08 17:49 | NUR ---
TRANSFER SUMMARY CHARGE NURSE ROBIN TOOK REPORT FROM PATIENT COMPANION. PATIENT WITH HEPATIC ENCEPHALOPATHY WITH LIVER CANCER AND WIDESPREAD METS. COMFORT CARE. ARRIVED TO UNIT AT 1700 ON BED. SLIDE TRANSFERRED. PATIENT VERY PAINFUL AND CRIED OUT DURING SLIDE. MEDICATED PER EMAR RIGHT BEFORE TRANSFER BY PATIENT COMPANION. IRRITABLE AND REFUSED TO ENGAGE IN CONVERSATION BUT CURSED AT THIS RN WHEN INTRODUCED. SON-IN-LAW CHIO PRESENT AND SUPPORTIVE AND PLEASANT. ATTENDS IN PLACE WITH GELLER PATENT DRAINING DARK CEDRIC URINE. PATIENT RESTING QUIETLY BUT ANXIOUS EXPRESSION WITH FURROWED BROW AND EYES SHUT. CALL LIGHT IN REACH. REFRESHMENT CART PRESENT IN ROOM FOR PATIENT AND FAMILY.
--- NOTE | 2023-02-09 04:21 | NUR ---
SHIFT SUMMARY: PATIENT IS A&O TO SELF AND DAUGHTER. PATIENT IS IRRITABLE AND STATES "LEAVE ME ALONE!" WHEN THIS NURSE MOVES HIS BLANKETS AND REFUSES TO BE REPOSITIONED, VITALS TAKEN, OR TO BE TOUCHED ANYWHERE BESIDES HIS IV. PATIENTS PAIN HAS BEEN MEDICATED WITH IV ATIVAN AND DILAUDID. DAUGHTER AT BEDSIDE STATES "I BELIEVE AT THIS TIME THE IV DILAUDID DOES BEST SINCE HE DOESN'T FIGET OR HAVE A FROWN ON HIS FACE". PATIENT IS LAYING IN BED WITH EYES CLOSED AND SNORING WITH CALL LIGHT IN REACH.
--- NOTE | 2023-02-09 12:03 | NUR ---
Spoke with Dr Esparza prior to visiting with Pt and discussed case. Placed comfort care order per V/O from Dr Esparza. Pt resting in bed with his eyes closed. Pt appears comfortable with no S/S of disress at this time. Pt left undisturbed at this time. Pt's daughter Beto at bedside. Offered supportive visit and therapeutic listening. Beto appears to be at peace with Pt being on comfort care. Listened as Pt has been requesting comfort measures only since Wednesday. Continued supportive visit. Palliative Care will remain available
--- NOTE | 2023-02-09 12:06 | NUR ---
Pt was in pain, per daughter Beto. He then started to swear angrily, saying that he needed to get up and poop. Beto told him that he is not able to get up, due to his weakness, disorientation and near fall in the past. He was assisted to use the bedpan, but he had already had stool incontinence. Pericare given and clean attends placed. Repositioned to his right side. He was angry, disoriented and cursing at all persons present during the entire time. Appeared to be calm and comfortable after care was given.
--- NOTE | 2023-02-09 13:34 | NUR ---
Spiritual care visit conducted. Patient is lying in bed and moaning. Patient's dtr Beto is bedside. We talk about the family unit complications, the patient's medical condition and his medical wishes. We talk about his sorted past and the recent reconnection that he and Beto have made (a yr or so ago). We discuss his care giving done by Beto's Jonathon and how the pt's grandchildren are being effected by his sudden decline. We explore the complixities of their relationship and the opportunity this time has afforded for forgiveness and reconciliation. I normalize their experience, reinforce healthy attitudes and perspectives and provide therapeutic listening. Beto showed signs of being comforted and of being encouraged by fresh insights.
--- NOTE | 2023-02-09 13:49 | NUR ---
Daughter Beto at bedside, with another female visitor. States that the pt appears calm and comfortable at this time.
--- NOTE | 2023-02-09 15:02 | NUR ---
Pt appears to be sleeping without restlessness, grimacing, nor apparent discomfort. Daughter Beto at the bedside. States that the pt appears to be comfortable.
--- NOTE | 2023-02-09 17:59 | NUR ---
TRANSFER SUMMARY ASSUMED CARE AT 1500. RESTING IN BED ASLEEP. DAUGHTER AT BEDISDE AND ATTENTIVE. GAVE REPORT TO MEDICAL FLOOR RN. NOTIFIED DAUGHTER OF TRANSFER. MEDICATED FOR PAIN WITH 4 MG IV MORPHINE PER EMAR. TRANSPORTED TO ROOM 329 ON BED, FAMILY FOLLOWED.
--- NOTE | 2023-02-10 04:27 | NUR ---
HOOP PUNCH AND COILER OPERATOR HELPER SUMMARY REMAINS ON COMFORT CARE. RECEIVING ANALGESICS INTERMITTENTLY WHEN SHOWING APPARENT SIGNS OF PAIN, DISCOMFORT OR AIR HUNGER. SEE MAR FOR DETAILS. FAMILY MEMBER AT BEDSIDE FOR SUPPORT. RESTING QUIETLY AT THIS TIME. CALL LIGHT IN REACH. WILL CONTINUE TO MONITOR
--- NOTE | 2023-02-10 10:27 | NUR ---
Comfort Care Visit Spoke with Dr Esparza and discussed case. Pt resting in bed with his eyes closed. Pt appears comfortable with no S/S of distress at this time. Respirations even and unlabored. Pt's daughter at bedside a sleep in recliner chair. Pt and daughter left undisturbed at this time. Palliative Care will remain available
--- NOTE | 2023-02-10 18:30 | NUR ---
SHIFT SUMMARY PATIENT RESTING, AROUSES WITH POSITIONING, AGITATED WHEN AWAKE. PATIENT MEDICATED FREQUENTLY WITH PAIN MEDS. FAMILY AT BEDSIDE MOST OF THE DAY. CATHETER DRAINING ORANGE URINE. CASE MANAGEMENT MAKING ARRANGEMENTS FOR PATIENT TO GO HOME ON HOSPICE LATER THIS WEEK.. PATIENT TURNED FREQUENTLY. EDUCATION PROVIDED TO FAMILY REGARDING HOSPICE AND WHAT TO EXPECT.
--- NOTE | 2023-02-11 04:11 | NUR ---
SHIFT SUMMARY; COMFORT CARE PT. NO ACUTE CHANGES OVERNIGHT. THE PT IS ORIENTATED TO SELF ONLY AND HAS BEEN SLEEPING FOR THE ENTIRETY OF THE NIGHT. THE PT DOES NOT LIKE TO BE REPOSITIONED IT IS PAINFUL FOR HIM. THE PT WAS MEDICATED ONCE THIS EVENING W/ DILUADID AND ATIVAN AND HAS BEEN SLEEPING SOUNDLY SINCE THEN. PRN PAIN MEDICATION IS AVAILABLE IF THE PT NEEDS IT. THE PTS DAUGHTER IS AT BEDSIDE. THE PT HAS A GELLER, IT IS PATENT AND DRAINING TO GRAVITY. CURRENTLY THE PT SLEEPING IN BED WITH THE BED IN THE LOWEST POSITION AND THE CALL LIGHT AT BEDSIDE. FIRE SAFETY MAINTAINED T/O THE NIGHT.
--- NOTE | 2023-02-11 10:56 | NUR ---
Comfort Care Visit Pt resting in bed with his eyes closed. Pt is non responsive to gentle touch and moderate verbal stimuli. Pt's daugter Beto at bedside. Offered supportive visit and emotional support as Beto is intermittently tearful. Pt appears comfortable with no S/S of distress. Pt's breathing pattern has also changed, more shallow with periods of apnea. Pt appears to be transitioning. Spoke with RN Apparatus Engineering Technologist and discussed case. Palliative Care will remain available
--- NOTE | 2023-02-11 13:16 | NUR ---
Spiritual care visit conducted. Patient's dtr, Beto, is bedside and tearful. We discuss her anticipatory grief, her family dynamics and her hopes that her dad will without suffering and without it being drawn out for a long period of time. I supply gentle senior vice president & general counsel, emotional support and therapeutic listening. Beto expresses gratitude for the visit and shows signs of being comforted. I will continue to remain available to patient and family.
--- NOTE | 2023-02-11 15:58 | NUR ---
COMFORT CARE SHIFT SUMMARY PATIENT HAS NOT BEEN ALERT AND ORIENTED. PATIENT HAS BEEN RESTING MOST OF SHIFT WITH DAUGHTER WITH PATIENT ALL SHIFT. PATIENT HAS BEEN MEDICATED FOR PAIN TWICE TODAY PER EMAR. PATIENT HAS BEEN MEDICATED FOR EXCESSIVE SECRETIONS TWICE PER EMAR. PATIENT HAS BEEN TURNED NEEDED. PATIENT HAS A GELLER AND IS DRAINING DARK URINE TO GRAVITY.
--- NOTE | 2023-02-12 04:10 | NUR ---
SHIFT SUMMARY; COMFORT CARE PT. NO ACUTE CHANGES OVERNIGHT. THE PT HAS BEEN UNRESPONSIVE T/O THE NIGHT. THE PT SOUNDS WET, SCOLAMINE PATCH APPLIED. I ATTEMPTED TO SUCTION THE PT, BUT WAS UNABLE TO GET VERY MUCH OUT. THE PT HAS BEEN MEDICATED TWICE THIS SHIFT W/ DILAUDID. DILUADID SEEMS TO HELP HIS BREATHING MORE THAN ROXANOL DOES. THE PT DOES HAVE A GELLER IT IS PATENT. THE PT IS STILL MAKING URINE, IT IS A VERY DARK CEDRIC COLOR. CURRENTLY THE PT IS LAYING IN BED WITH THE BED IN THE LOWEST POSITION, DAUGHTER AT BEDSIDE AND THE CALL LIGHT WITHIN REACH. FIRE SAFETY MAINTAINED T/O THE NIGHT.
--- NOTE | 2023-02-12 16:37 | NUR ---
Comfort Care Visit Pt resting in bed with his eyes closed. Pt appears comfortable with no S/S of distress at this time. Pt remains non responsive. Daughter Beto at bedside. She reports Pt has required suctioning today as he has devleoped significant secretions. Offered supportive visit to daughter. Daughter expresses appreciation of care given to Pt. Palliative Care will remain available
--- NOTE | 2023-02-12 18:18 | NUR ---
SHIFT SUMMARY: PT WAS SLIGHTLY RESPONSIVE THIS AM GROINING IN PAIN AND ABLE TO OPEN MOUTH FOR SUCTIONING. ANTI ANXIETY AND PAIN MEDICATION PROVIDED PER EMAR. DAUGHTER AT BEDSIDE THROUGHOUT SHIFT. PT GURGLING AND HAS WET PRODUCTIVE COUGH. SUCTIONED NEEDED. SCOPOLAMINE PATCH IN PLACE. ATROPINE DROPS GIVEN W/MINIMAL AFFECT. ROTATING PT NEEDED. PT NOW UNRESPONSIVE. ATTEMPTED REFLEXES WITH NO RESPONSE. GELLER IN PLACE DRAINING DARK URINE. CALL LIGHT IN REACH. BED IN LOWEST POSITION. WILL CONTINUE TO MONITOR.
--- NOTE | 2023-02-13 03:48 | NUR ---
SHIFT SUMMARY NOC COMFORT CARE PT WHO IS UNRESPONSIVE. PT OPENED ONE EYE ONCE DURING SHIFT WHEN BEING SUCTIONED. NO ACUTE CHANGES TO REPORT. PT BREATHING STILL BRADYPNEA. SECRETIONS HAVE BEEN MANAGED WITH SCAPOLOMINE PATCH BEHIND R EAR AND SL ATROPINE DROPS IN CONJUNCTION WITH SUCTIONINING PRN. PAIN HAS BEEN MANAGED PER EMAR Q2H. PG IN [place]. GELLER STILL IN PLACE DRAINING DARK CEDRIC URINE WITH SCANT OUTPUT TO GRAVITY. PT DAUGHTER HAS BEEN AT BEDSIDE ENTIRE SHIFT AND HAS BEEN HELPFUL IN HELPING TO MONITOR WHEN PT IS EXHIBITING PAIN TO ALERT NURSING STAFF FOR PAIN RX. PT IS CURRENTLY RESING WITH BED IN LOWEST POSITION, AND CALL LIGHT WITHIN REACH.
--- NOTE | 2023-02-13 09:42 | NUR ---
RN NOTE MR KNUTSON IS OPENS HIS EYES OCCASIONALLY, HAS SOME FACIAL GRIMACE, ESPECIALLY TO REPOSITIONING. MEDICATED FOR PAIN WITH DILAUDID AND MORPHINE. MOIST COUGH ON AND OFF, HAS SCOPOLOMINE PATCH ON, GIVEN ATROPINE DROPS AND ORAL SUCTIONING. DAUGHTER AT BEDSIDE AND HER AND DAUGHTER ARE ON THEIR WAY IN. JUST GIVEN A DOSE OF 2MG IV DILAUDID AND HE LOOKS MORE COMFORTABLE AFTER THAT.
--- NOTE | 2023-02-13 16:11 | NUR ---
SHIFT SUMMARY MR KNUTSON LOOKS COMFORTABLE AT THIS TIME. HE WAS RECENTLY TURNED AND REPOSITIONED, SMALL BM SMEAR, GELLER CARE AND SKIN CARE DONE. THERE WAS FACIAL GRIMACE AND MOAN WHEN HE WAS TURNED. HE LOOKS COMFORTABLE AFTER BEING GIVEN DILAUDID IV. EARLER DOSE OF 1MG DILAUDID DID NOT SEEM TO HELP HIM SETTLE AND 2MG HELPED HIM, SO THIS DOSE WAS REPEATED. ATROPINE DROPS FOR SECRETIONS THOUGH NOT ABLE TO ORAL SXN MUCH AT ALL. WHEN EYES WERE OPEN GAZE WAS UP AND TO THE LEFT. SKIN LOOKS PALER AND BREATHING MORE IRREGULAR WITH PAUSES. DAUGHTER HAS BEEN AT THE BEDSIDE ALL DAY AND IS VERY HELPFUL IN DECISION MAKING FOR HER FATHER'S COMFORT. BED LOW, SIDE RAILS UP X2.
--- NOTE | 2023-02-14 05:12 | NUR ---
SHIFT SUMMARY NOC PT ON COMFORT CARE AND STILL REMAINS UNRESPONSIVE. LUNG SOUNDS STILL MOIST, WITH NO SECRETIONS ABLE TO BE SUCTIONED. PT BEING MEDICATED PER EMAR FOR PAIN Q2H TO Q3H FOR PAIN, WHICH SEEMS TO BE KEEPING PT COMFORTABLE. PT DAUGHTER STILL AT BEDSIDE. GELLER STILL IN PLACE DRAINING CEDRIC COLORED URINE WITH MODERATE OUTPUT. PG IN [place] STILL IN PLACE BEING USED FOR RX ADMINISTRATION. PT IS CURRENTLY RESTING WITH BED IN LOWEST POSITION, AND CALL LIGHT WITHIN REACH.
--- NOTE | 2023-02-14 10:54 | NUR ---
RN NOTE MR KNUTSON IS LESS RESPONSIVE TODAY. HIS DAUGHTER RADHA IS AT HIS BEDSIDE. SHE WAS CONCERNED THAT HE WAS IN PAIN THIS MORNING WITH SOME FACIAL GRIMACE AND FAST RESPIRATIONS. GIVEN ROXINOL AND DILAUDID. GIVEN ATROPINE FOR SECRETIONS. HIS SKIN IS HOT TO TOUCH. GELLER CATHETER WITH UOP. TURNED, REPOSITIONED AND SKIN CARE WITH NO CHANGE IN ALERTNESS AT ~ 10AM. SUPPORTIVE CARE TO RADHA.
--- NOTE | 2023-02-14 16:03 | NUR ---
SHIFT SUMMARY MR KNUTSON DOES NOT APPEAR TO BE IN PAIN OR DISTRESS. HE IS UNRESPONSIVE, HAD FACIAL GRIMACE THIS AM, BUT NO LONGER HAVING FACIAL GRIMACE. IRREGULAR RESPIRATIONS. CYANOSIS PRESENT. DAUGHTER AT BEDSIDE ALL DAY, SHE SAID SHE DOES NOT THINK HER DAD HAS ANY DISCOMFORT. SUPPORTIVE CARE TO RADHA (DAUGHTER).
--- NOTE | 2023-02-15 03:57 | NUR ---
SHIFT SUMMARY NOC PT ON COMFORT CARE AND UNRESPONSIVE STILL. PAIN MANAGED WITH DILAUDID Q3H WITH GOOD EFFECT. DAUGHTER HAS BEEN AT BEDSIDE AGAIN ALL NIGHT. PT HAS GELLER IN PLACE WITH 400ML DARK CEDRIC URINE OUTPUT SO FAR DURING SHIFT. PG IN [place] STILL PATENT. PT IS CURRENTLY UNRESPONSIVE WITH BED IN LOWEST POSITION, AND CALL LIGHT WITHIN REACH.
--- NOTE | 2023-02-15 16:41 | NUR ---
1351- RN LISTENED FOR AN APICAL PULSE FOR 1 MINUTE AND NO HEARTBEAT WAS HEARD. PT HAD NO CAROTID PULSES BILATERALLY. PT WAS NOT BREATHING AND HAD NO SPONTANEOUS RESPERATIONS. CHARGE NURSE NOTIFIED AND DR. MAYO WAS NOTIFIED.
== END 2023-02-15 13:51 | DRG 871 ==
LOC: ER 00:24 → ICUE 06:18 → MEDS 06:18 → ICUE 02-08 01:19 → PCU 02-08 17:15 → MEDS 02-09 16:59
PROVIDERS: Student in an Organized Health Care Education/Training Program; ADMIT Internal Medicine
PROC: 3E03329 Introduction of Other Anti-infective into Peripheral Vein, Percutaneous Approach (ICD-10-PCS; principal; 2023-02-07)
PROC: 0T9B70Z Drainage of Bladder with Drainage Device, Via Natural or Artificial Opening (ICD-10-PCS; 2023-02-07)
PROC: 3E033XZ Introduction of Vasopressor into Peripheral Vein, Percutaneous Approach (ICD-10-PCS; 2023-02-08)
DX: A41.50 Gram-negative sepsis, unspecified (principal); J18.9 Pneumonia, unspecified organism; E72.20 Disorder of urea cycle metabolism, unspecified; E87.20 Acidosis, unspecified; I69.351 Hemiplegia and hemiparesis following cerebral infarction affecting right dominant side; R64 Cachexia; Z68.1 Body mass index [BMI] 19.9 or less, adult; C22.0 Liver cell carcinoma; Z51.5 Encounter for palliative care; Z20.822 Contact with and (suspected) exposure to COVID-19; A41.51 Sepsis due to Escherichia coli [E. coli]; K76.82 Hepatic encephalopathy; N28.89 Other specified disorders of kidney and ureter; R74.01 Elevation of levels of liver transaminase levels; D72.825 Bandemia; I10 Essential (primary) hypertension; F17.200 Nicotine dependence, unspecified, uncomplicated; Z79.899 Other long term (current) drug therapy; Z79.82 Long term (current) use of aspirin; Z79.891 Long term (current) use of opiate analgesic; Z85.528 Personal history of other malignant neoplasm of kidney; Z98.890 Other specified postprocedural states; Z92.21 Personal history of antineoplastic chemotherapy
CPT/HCPCS: 0241U; 36415; 51702; 71045; 71260; 74177; 80053; 81001; 82140; 82947; 83605; 83690; 83880; 84145; 85025; 85610; 87040; 87077; 87086; 87186; 93005; 93010; 94762; 96361; 96365-59; 96367; 96375; 99285-25; A9270; C1751; J0456; J0692; J0696; J1170; J1940; J2060; J2270; J3010; J7030; J7042; J7050; J7060; J7120; Q9967